=== PATIENT | male | born 1940 | race Caucasian/White ===

== ENCOUNTER 2017-09-17 11:09 | Emergency (ER) | payer OTHER ==
[~2017-09-17] VITALS: Ht 172.7 cm; Wt 63.5 kg
[~2017-09-17 11:09] MED LIST: ALBU6.7H INH; CELE10TA9 PO; ROSU5 PO; ZITH250T PO
[2017-09-17 11:13] VITALS: BP 103/59; PULSE 73; RESP 18; TEMP 98; O2SAT 98
--- NOTE | 2017-09-17 11:53 | PD ---
Physical Exam Time Seen by Provider: 11:48 Narrative 76yo M c/o feeling extremely anxious and depressed x 10 days. Takes Ativan for anxiety and last took at 10am. Says he hasn't been able to sit still all morning. Denies SI or HI. Denies chest pain, SOB, abd pain, vomiting. Patient seen in triage. VS reviewed. Awaiting bed placement. See next providers note for final patient disposition. Data Data Last Documented VS Vital Signs Date Time Temp Pulse Resp B/P (MAP) Pulse Ox O2 Delivery O2 Flow Rate FiO2 09/17/17 11:13 98.0 73 18 103/59 (74) 98 Room Air MDM Supervised Visit with SHANICE: Radha Anderson Sep 17, 2017 11:53
--- NOTE | 2017-09-17 14:06 | PD ---
HPI Chief Complaint: Anxiety Time Seen by Provider: 13:03 Travel History International Travel<30 days: No Contact w/Intl Traveler<30days: No Traveled to known affect area: No History of Present Illness HPI Patient is 76-year-old male with history anxiety presents emergency department for a chief complaint of difficulty sleeping. He states for the past few days and waking up at approximately 3:00 in the morning and difficulty falling asleep afterwards. He tried some melatonin, tried his home Ativan and needs her not being successful previously. He states she's just been feeling generally fatigued and his fatigue after eating short walks now. Denies any shortness of breath or orthopnea denies any palpitations leg swelling. He is a smoker. He also denies any chest pain abdominal pain focalized weakness nausea vomiting diarrhea constipation or pain. He is also denying any presyncopal symptoms out the patient's chest pain.. He states symptoms are mild, context as above, associated signs symptoms as above, for the past few days. He also states he had workup with his primary care physician in [place] a few days ago including a chest x-ray and chest CT which only apparently showed a nodule which is to follow-up CAT scan in 3 months. PFSH Past Medical History Asthma: No Cardiac Catheterization: No Cardiovascular Problems: No Chest Pain: No Cerebrovascular Accident: No Diabetes: No Dialysis: No Past Surgical History Narrative Surgical Denies Social History Tobacco Use: Yes Allergies-Medications (Allergen,Severity, Reaction): Coded Allergies: No Known Allergies (Unverified Adverse Reaction, Unknown, 09/17/17) Reported Meds & Prescriptions Reported Meds & Active Scripts Active Proventil Hfa (Albuterol Sulfate) 6.7 Gm Aero 2 Puff INH Q4HPRN * SHAKE WELL BEFORE USE * Zithromax Z-Adonay (Azithromycin) 250 Mg Tab 250 Mg PO DIRECTED 5 Days 500 MG (2 TABLETS) PO ON DAY 1, THEN 250 MG (1 TABLET) PO ON DAYS 2 TO 5. Reported Celexa (Citalopram Hydrobromide) 10 Mg Tab 0 PO UNKNOWN DOSE Crestor (Rosuvastatin Calcium) 5 Mg Tab 0 PO UNKNOWN DOSE Review of Systems Except as stated in HPI: all other systems reviewed are Neg Physical Exam Narrative GENERAL: Well-developed well-nourished in obvious distress SKIN: Focused skin assessment warm/dry. HEAD: Atraumatic. Normocephalic. EYES: Pupils equal and round. No scleral icterus. No injection or drainage. ENT: No nasal bleeding or discharge. Mucous membranes pink and moist. NECK: Trachea midline. No JVD. CARDIOVASCULAR: Regular rate and rhythm. No murmur appreciated. RESPIRATORY: No accessory muscle use. Clear to auscultation. Breath sounds equal bilaterally. GASTROINTESTINAL: Abdomen soft, non-tender, nondistended. Hepatic and splenic margins not palpable. MUSCULOSKELETAL: No obvious deformities. No clubbing. No cyanosis. No edema. NEUROLOGICAL: Awake and alert. Cranial nerves II through XII are grossly intact and nonfocal, 5 out of 5 strength in all 4 tremors, ambulates with even narrow based gait. PSYCHIATRIC: Appropriate mood and affect; insight and judgment normal. Denies suicidal or homicidal ideation, endorses depression. Denies any audiovisual hallucinations. Data Data Last Documented VS Vital Signs Date Time Temp Pulse Resp B/P (MAP) Pulse Ox O2 Delivery O2 Flow Rate FiO2 09/17/17 11:13 98.0 73 18 103/59 (74) 98 Room Air Orders Orders Ed Discharge Order (09/17/17 14:06) MDM Medical Decision Making Medical Screen Exam Complete: Yes Emergency Medical Condition: Yes Differential Diagnosis Adjustment disorder, anxiety, depression, acute medical emergency highly unlikely. Narrative Course Is roomed in emergency department, chief complaints is fatigued as well as difficulty sleeping. He appears well in no obvious distress, no conjunctival pallor and no symptoms to suggest presyncope or CHF. At this time there is no indication for emergent workup, he is planning to return to his primary care physician in [place] within the next few days, I discussed with him that we are always available should he develop any concerning signs or symptoms but at this time he is stable for discharge. After reassuring the patient feels better as well as his daughter who is a nurse. Diagnosis Primary Impression: Adjustment disorder Disposition: 01 DISCHARGE HOME Condition: Stable Juan C Michaels MD Sep 17, 2017 14:06
== END 2017-09-17 14:09 | disposition home or self-care (01) ==
LOC: NEPD 11:09
DX: F43.20 Adjustment disorder, unspecified (principal); R53.83 Other fatigue; Z79.899 Other long term (current) drug therapy; Z72.0 Tobacco use
CPT/HCPCS: 99283